=== PATIENT | female | born 1990 | race Caucasian/White ===

== ENCOUNTER → 2019-12-23 | Outpatient (CLI) | payer MEDICAID, SELFPAY ==
[2019-12-23 09:42] VITALS: BMI 37.2
[2019-12-29 14:51] LABS: HPV Reflexed? NOT INDICATED
== END | disposition home or self-care (01) ==
LOC: LABSPEC 12:43
PROVIDERS: Referring Provider Nurse Practitioner Women's Health; Visit Provider Nurse Practitioner Women's Health
DX: Z12.4 Encounter for screening for malignant neoplasm of cervix (principal)
CPT/HCPCS: 88175; G0145

== ENCOUNTER → 2020-01-07 | Outpatient (CLI) | payer MEDICAID, SELFPAY ==
[2019-12-23 09:42] VITALS: BMI 37.2
--- NOTE | 2020-01-07 14:00 | US_ITS ---
STUDY: ULTRASOUND OF THE FEMALE PELVIS - COMPLETE REASON FOR EXAM: Female, 29 years old. INFERTILITY , PCOS LMP: TECHNIQUE: Transabdominal and transvaginal TECHNICAL QUALITY: Adequate. COMPARISON: None. FINDINGS: The uterus is anteverted and is in a midline position. The uterus measures 7.8 x 4.6 x 3.8 cm. Normal uterine cervix. The endometrium measures 2.1 mm in thickness, and is . There is no demonstrated endometrial mass. There is no demonstrated myometrial mass. I.U.D. - The patient does not have an I.U.D. The right ovary is visualized. The right ovary measures 3.6 x 2.9 x 1.7 cm. There is no right ovarian cyst or ovarian mass. There is no visualized right adnexal mass or complex lesion. There is normal arterial and normal venous vascularity. The left ovary is visualized. The left ovary measures 3.6 x 3.2 x 1.6 cm. There is no left ovarian cyst or ovarian mass. There is no visualized left adnexal mass or complex lesion. There is normal arterial and normal venous vascularity. Multiple subcentimeter ovarian follicles bilaterally which may be due to polycystic ovarian disease however clinical correlation is recommended with respect to possible hormonal dysfunction There is no fluid in the cul-de-sac. US/Pelvic (Non ) IMPRESSION: Multiple subcentimeter bilateral ovarian follicles possibly due to polycystic ovary disease however clinical correlation is recommended with regards to possible hormonal dysfunction Electronically Signed: Melchor Wilson MD at 17:31 EDT , Service support ,
--- NOTE | 2020-01-07 14:00 | US_ITS ---
STUDY: ULTRASOUND OF THE FEMALE PELVIS - COMPLETE REASON FOR EXAM: Female, 29 years old. INFERTILITY , PCOS LMP: TECHNIQUE: Transabdominal and transvaginal TECHNICAL QUALITY: Adequate. COMPARISON: None. FINDINGS: The uterus is anteverted and is in a midline position. The uterus measures 7.8 x 4.6 x 3.8 cm. Normal uterine cervix. The endometrium measures 2.1 mm in thickness, and is . There is no demonstrated endometrial mass. There is no demonstrated myometrial mass. I.U.D. - The patient does not have an I.U.D. The right ovary is visualized. The right ovary measures 3.6 x 2.9 x 1.7 cm. There is no right ovarian cyst or ovarian mass. There is no visualized right adnexal mass or complex lesion. There is normal arterial and normal venous vascularity. The left ovary is visualized. The left ovary measures 3.6 x 3.2 x 1.6 cm. There is no left ovarian cyst or ovarian mass. There is no visualized left adnexal mass or complex lesion. There is normal arterial and normal venous vascularity. Multiple subcentimeter ovarian follicles bilaterally which may be due to polycystic ovarian disease however clinical correlation is recommended with respect to possible hormonal dysfunction There is no fluid in the cul-de-sac. US/Transvaginal Non- IMPRESSION: Multiple subcentimeter bilateral ovarian follicles possibly due to polycystic ovary disease however clinical correlation is recommended with regards to possible hormonal dysfunction Electronically Signed: Melchor Wilson MD at 17:31 EDT , Service support ,
== END | disposition home or self-care (01) ==
LOC: OPUS 14:00
PROVIDERS: PCP Nurse Practitioner Family; Referring Provider Nurse Practitioner Women's Health; Visit Provider Nurse Practitioner Women's Health
DX: N97.0 Female infertility associated with anovulation (principal)
CPT/HCPCS: 76830; 76856

== ENCOUNTER → 2020-01-08 | Outpatient (CLI) | END | disposition home or self-care (01) | PROVIDERS: Nurse Practitioner Women's Health | DX: N97.0 Female infertility associated with anovulation (principal) | CPT/HCPCS: 82670 ==

== ENCOUNTER → 2020-01-26 | Outpatient (CLI) | payer MEDICAID, SELFPAY ==
[2019-12-23 09:42] VITALS: BMI 37.2
[2020-01-27 13:51] LABS: Progesterone Level 14.31 ng/mL (See Comment)
== END | disposition home or self-care (01) ==
LOC: LAB 16:46
PROVIDERS: PCP Nurse Practitioner Family; Referring Provider Nurse Practitioner Women's Health; Visit Provider Nurse Practitioner Women's Health
DX: Z31.9 Encounter for procreative management, unspecified (principal)
CPT/HCPCS: 36415; 84144